=== PATIENT | male | born 1965 | race Caucasian/White ===

== ENCOUNTER 2017-03-07 06:06 | Emergency (ER) | payer OTHER ==
[2017-03-07 06:12] VITALS: BP 156/76
[2017-03-07] MEDS ORDERED: Sucralfate Suspension 1 GM/10 ML Cup PO STA (06:22)
[2017-03-07] MEDS ORDERED: Alum Hydrox/Mag Hydrox/Simeth 30 ML, Lidocaine 2% 15 ML PO STA ×2 (06:22)
--- NOTE | 2017-03-07 06:33 | EDM.PDOC ---
ED HPI GI/ABDOMINAL - General Chief Complaint: ENT Problem Stated Complaint: FB STUCK IN THROAT Time Seen by Provider: 03/07/17 06:11 Source of Information: Reports: Patient, RN notes reviewed History Limitations: Reports: No limitations - History of Present Illness INITIAL COMMENTS - FREE TEXT/NARRATIVE: The patient states he took 3 large pre-workout pills around 05:45 this morning, then developed the sensation of something being stuck in his esophagus. He has been able to swallow water the entire time. He was concerned that he was choking. He states that he has had a similar sensation many times over the past 6 years. The patient is prescribed omeprazole by his PCP in [place] to treat GERD. His last EGD was around 10 years ago. - Related Data Allergies/ADRs: Allergies Allergy/AdvReac Type Severity Reaction Status Date / Time Penicillins Allergy Hives Verified 03/07/17 06:09 sulfamethoxazole Allergy Hives Verified 03/07/17 06:09 [From ] trimethoprim [From ] Allergy Hives Verified 03/07/17 06:09 Home Meds: Home Meds Omeprazole 20 mg PO DAILY 03/07/17 [History] Past Medical History HEENT History: Reports: Other (see below) (BPPV) Respiratory History: Reports: Sleep apnea (CPAP 7) Gastrointestinal History: Reports: GERD Genitourinary History: Reports: Renal calculus Psychiatric History: Reports: Anxiety - Past Surgical History Musculoskeletal Surgical History: Reports: Arthroscopic procedure (Left knee), Shoulder surgery (Right rotator cuff) Social & Family History - Tobacco Use Smoking Status *Q: Never Smoker Second Hand Smoke Exposure: No - Alcohol Use Alcohol Use History: Yes Days Per Week of Alcohol Use: 0 Alcohol Use Frequency: Rarely - Recreational Drug Use Recreational Drug Use: No - Living Situation & Occupation Living situation: Reports: , alone 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) ED ROS GENERAL - Review of Systems Review Of Systems: See Below Constitutional: Reports: no symptoms HEENT: Reports: No symptoms Respiratory: Reports: No Symptoms Cardiovascular: Reports: No symptoms Endocrine: Reports: no symptoms GI/Abdominal: Reports: No symptoms : Reports: no symptoms Musculoskeletal: Reports: no symptoms Skin: Reports: no symptoms Neurological: Reports: No Symptoms Psychiatric: Reports: No symptoms Hematologic/Lymphatic: Reports: no symptoms Immunologic: Reports: no symptoms ED EXAM, GI/ABD - Physical Exam Exam: See Below Exam Limited By: No limitations General Appearance: alert, WD/WN, anxious Eyes: bilateral: normal appearance, EOMI Ears: normal external exam, hearing grossly normal Nose: normal inspection, no blood Throat/Mouth: Normal inspection, Normal lips, Normal voice, No airway compromise Head: atraumatic, normocephalic Neck: normal inspection, full range of motion Respiratory/Chest: no respiratory distress, lungs clear, normal breath sounds, no accessory muscle use Cardiovascular: normal peripheral pulses, regular rate, rhythm, no gallop, no JVD, no murmur, no rub GI/Abdominal: normal bowel sounds, soft, non tender, no organomegaly, no distention, no abnormal bruit, no mass (Male) Exam: Deferred Rectal (Males) Exam: Deferred Back Exam: normal inspection, full range of motion, NT Extremities: normal inspection, normal range of motion, no pedal edema, normal capillary refill Neurological: alert, oriented, normal cognition, normal gait, no motor/sensory deficits Psychiatric: normal affect, anxious Skin Exam: Warm, Dry, Intact, Normal color, No rash Lymphatic: no adenopathy Course - Vital Signs Last Recorded V/S: Last Vital Signs Temp 36.0 C 03/07/17 06:10 Pulse 80 03/07/17 06:10 Resp 16 03/07/17 06:10 BP 156/76 H 03/07/17 06:10 Pulse Ox 100 03/07/17 06:10 - Orders/Labs/Meds Orders: Active Orders 24 hr Category Date Time Status Esophagus [CR] Stat Exams 03/07/17 06:46 Taken Meds: Medications Discontinued Medications Generic Name Dose Route Start Last Admin Trade Name Rickyq PRN Reason Stop Dose Admin Barium Sulfate 355 ml 03/07/17 07:02 Liquid E-Z Paque PO 03/07/17 07:03 PREPRO ONE Al Hydroxide/Mg Hydroxide 30 0 ml 03/07/17 06:22 03/07/17 06:28 ml/ Lidocaine HCl 15 ml PO 03/07/17 06:23 45 ml ONETIME STA Administration Sucralfate 1 gm 03/07/17 06:22 03/07/17 06:28 Carafate PO 03/07/17 06:23 1 gm ONETIME STA Administration - Radiology Interpretation Free Text/Narrative:: 2-view chest radiograph obtained after the patient swallowed some barium appears to indicate barium in the stomach, consistent with no obstruction. Formal read per the Radiologist pending. - Re-Assessments/Exams Free Text/Narrative Re-Assessment/Exam: 03/07/17 06:33 The patient was given water to drink in the ED, and he was able to swallow it without any regurgitation. Clinically, I suspect that the patient has pill esophagitis. I have ordered a GI cocktail to provide quicker relief, to be followed by Carafate to give a longer lasting relief. 03/07/17 06:47 The patient is extremely anxious and will not dring the GI cocktail. He wants a "picture". I have ordered a CXR to be taken after he has swallowed some barium. 03/07/17 07:11 As above, the chest x-ray with barium indicates no obstruction. Clinically, the patient's symptoms had abated after he drank the GI cocktail. I had him drink the Carafate, as well, and, should his symptoms recur, I will have him drink some Gaviscon. Departure - Departure Time of Disposition: 07:12 Disposition: Home, Self-Care 01 Condition: good Clinical Impression: Pill esophagitis Forms: ED Department Discharge Additional Instructions: You were seen in the emergency room after developing the sensation of a pill being stuck in your throat. Workup in the ER included a chest x-ray taken after you swallow some barium. This showed no obstruction in your esophagus. Your symptoms are due to pill esophagitis, which is some inflammation of your esophagus caused by a pill temporarily being stuck to the wall. If your symptoms recur, we recommend that you drink some Gaviscon. In the future, when taking pills, make sure that you swallow them with a large gulp of water. We recommend that you contact your PCP to arrange for an EGD (stomach scope). If any other problems, please do not hesitate to return to the ER. - My Orders Last 24 Hours: My Active Orders 03/07/17 06:46 Esophagus [CR] Stat - Assessment/Plan Last 24 Hours: My Active Orders 03/07/17 06:46 Esophagus [CR] Stat
[2017-03-07] MEDS ORDERED: Barium Sulfate 60% w/v Susp 355 ML Bottle PO ONE (07:02)
--- NOTE | 2017-03-07 10:40 | CR ---
Esophagram: Two views of the chest are obtained after oral contrast has been given. Questionable filling defect within the distal esophagus is seen at the gastroesophageal junction. This appears to be incompletely obstructing as a small amount of barium is seen within the stomach. Other portions of the esophagus as seen on this study appear unremarkable. Heart size and mediastinum are normal. Lungs are clear. Bony structures are unremarkable. Impression: 1. Appearance of a filling defect within the distal esophagus at the gastroesophageal junction. This is nonspecific for ingested foreign body versus tumor or other abnormality. Diagnostic code #3
== END 2017-03-07 07:25 | disposition home or self-care (01) ==
LOC: JD.ED 06:06
DX: K20.9 Esophagitis, unspecified (principal); F41.9 Anxiety disorder, unspecified; K21.9 Gastro-esophageal reflux disease without esophagitis; Z88.0 Allergy status to penicillin; Z88.2 Allergy status to sulfonamides; Z88.1 Allergy status to other antibiotic agents
CPT/HCPCS: 74220; 99284; A9270; 99283

== ENCOUNTER 2017-04-14 19:53 | Emergency (ER) | payer OTHER ==
[2017-04-14] MEDS ORDERED: Sodium Chloride 0.9% 10 ML Syringe FLUSH PRN (20:06)
--- NOTE | 2017-04-14 20:09 | EDM.PDOC ---
ED HPI GENERAL MEDICAL PROBLEM - General Stated Complaint: NUMBNESS ON LEFT SIDE Time Seen by Provider: 04/14/17 19:55 Source of Information: Reports: Patient History Limitations: Reports: No Limitations - History of Present Illness INITIAL COMMENTS - FREE TEXT/NARRATIVE: Patient is a 51-year-old male who presents to the ED complaining of left-sided numbness and tingling. States it started approximately half hour ago while sitting. States with onset he took 810 mg of aspirin prior to arriving to the ED. States he's concerned he may be having a stroke since there is a family history. Denies any headache, nausea/ vomiting, vision changes, chest pain, shortness of breath, abdominal pain, weakness, recent head trauma, or any additional complaints. Patient states he does lift heavy weights daily. States he's taking testosterone supplements that were purchased over the Internet and protein. Denies history of TIA/stroke like symptoms and head bleed. Patient states a few years ago he had a screening carotid ultrasounds indicating mild amount of plaque. Patient was instructed to followup for further testing to which he did not. 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 - Related Data Allergies Allergy/AdvReac Type Severity Reaction Status Date / Time Penicillins Allergy Hives Verified 04/14/17 20:03 sulfamethoxazole Allergy Hives Verified 04/14/17 20:03 [From ] trimethoprim [From ] Allergy Hives Verified 04/14/17 20:03 Home Meds: Home Meds Omeprazole 20 mg PO DAILY 03/07/17 [History] Past Medical History HEENT History: Reports: Other (See Below) Respiratory History: Reports: Sleep Apnea Gastrointestinal History: Reports: GERD Genitourinary History: Reports: Renal Calculus Psychiatric History: Reports: Anxiety - Past Surgical History Musculoskeletal Surgical History: Reports: Arthroscopic Procedure, Shoulder Surgery Social & Family History - Tobacco Use Smoking Status *Q: Never Smoker Second Hand Smoke Exposure: No - Caffeine Use Caffeine Use: Reports: None - Alcohol Use Days Per Week of Alcohol Use: 0 - Recreational Drug Use Recreational Drug Use: No - Living Situation & Occupation Living situation: Reports: , Alone Occupation: Employed ED ROS GENERAL - Review of Systems Review Of Systems: See Below Constitutional: Denies: Fever, Chills HEENT: Denies: Vision Change Respiratory: Denies: Shortness of Breath, Cough Cardiovascular: Denies: Chest Pain, Dyspnea on Exertion, Lightheadedness, Palpitations GI/Abdominal: Denies: Abdominal Pain, Nausea, Vomiting : Denies: Incontinence Musculoskeletal: Denies: Neck Pain, Shoulder Pain, Arm Pain, Back Pain, Leg Pain Neurological: Reports: Dizziness (intermittent), Numbness (left side of body), Tingling (left side of body). Denies: Confusion, Headache, Pre-Existing Deficit , Syncope, Trouble Speaking, Difficulty Walking, Weakness, Change in Speech ED EXAM, NEURO - Physical Exam Exam: See Below Exam Limited By: No Limitations General Appearance: Alert, WD/WN, No Apparent Distress Eye Exam: Bilateral Eye: EOMI, PERRL Ears: Hearing Grossly Normal Nose: Normal Inspection Throat/Mouth: Normal Inspection, Normal Oropharynx, Normal Voice, No Airway Compromise Head Exam: Atraumatic, Normocephalic Neck: Normal Inspection, Supple, Non-Tender. No: Carotid Bruit Respiratory/Chest: No Respiratory Distress, Lungs Clear, Normal Breath Sounds, No Accessory Muscle Use, Chest Non-Tender Cardiovascular: Normal Peripheral Pulses, Regular Rate, Rhythm, No Murmur GI/Abdominal: Normal Bowel Sounds, Soft, Non-Tender, No Organomegaly, No Distention Neurological: Alert, Normal Mood/Affect, Normal Dorsiflexion, CN II-XII Intact, Normal Plantar Flexion, Normal Gait, No Motor/Sensory Deficits (States the left side of his body is having n/t. No sensory deficits noted. ), Oriented x 3, Other (strenght 5/5 upper/lower extremities bilaterally. cerebellar fx's intact. ) Back Exam: Normal Inspection Extremities: Normal Range of Motion Psychiatric: Normal Affect, Normal Mood Skin Exam: Warm, Dry, Intact, Normal Color Course - Vital Signs Last Recorded V/S: Last Vital Signs Temp 98.5 F 04/14/17 19:58 Pulse 64 04/14/17 21:40 Resp 16 04/14/17 21:40 BP 145/88 H 04/14/17 21:40 Pulse Ox 95 04/14/17 21:40 - Orders/Labs/Meds Orders: Active Orders 24 hr Category Date Time Status EKG Documentation Completion [RC] STAT Care 04/14/17 20:06 Active Peripheral IV Care [RC] . DIRECTED Care 04/14/17 20:07 Active Chest 1V Frontal [CR] Stat Exams 04/14/17 20:06 Taken Head wo Cont [CT] Stat Exams 04/14/17 20:06 Taken Peripheral IV Insertion Adult [OM.PC] Stat Oth 04/14/17 20:06 Ordered Labs: Laboratory Tests 04/14/17 04/14/17 04/14/17 Range/Units 20:10 20:10 20:10 WBC 9.27 H (4.23-9.07) K/mm3 RBC 6.45 H (4.63-6.08) M/mm3 Hgb 16.5 (13.7-17.5) gm/L Hct 49.9 (40.1-51.0) % MCV 77.4 L (79.0-92.2) fl MCH 25.6 L (25.7-32.2) pg MCHC 33.1 (32.2-35.5) g/dl RDW Std Deviation 40.1 (35.1-43.9) fL Plt Count 257 (163-337) K/mm3 MPV 9.6 (9.4-12.3) fl Neut % (Auto) 65.7 (34.0-67.9) % Lymph % (Auto) 20.5 L (21.8-53.1) % Hernando % (Auto) 9.4 (5.3-12.2) % Eos % (Auto) 3.5 (0.8-7.0) Baso % (Auto) 0.3 (0.1-1.2) % Neut # (Auto) 6.09 H (1.78-5.38) K/mm3 Lymph # (Auto) 1.90 (1.32-3.57) K/mm3 Hernando # (Auto) 0.87 H (0.30-0.82) K/mm3 Eos # (Auto) 0.32 (0.04-0.54) K/mm3 Baso # (Auto) 0.03 (0.01-0.08) K/mm3 Manual Slide Review Abnormal smear PT 11.1 (8.0-13.0) SECONDS INR 1.02 APTT 26 (22-36) SECONDS Sodium 142 (136-145) mEq/L Potassium 3.8 (3.5-5.1) mEq/L Chloride 104 (98-107) mEq/L Carbon Dioxide 30 (21-32) mEq/L Anion Gap 11.8 (5-15) BUN 24 H (7-18) mg/dL Creatinine 1.7 H (0.7-1.3) mg/dL Est Cr Clr Drug Dosing TNP Estimated GFR (MDRD) 43 (>60) mL/min BUN/Creatinine Ratio 14.1 (14-18) Glucose 91 (74-106) mg/dL Calcium 9.6 (8.5-10.1) mg/dL Total Bilirubin 0.3 (0.2-1.0) mg/dL AST 31 (15-37) U/L ALT 29 (16-63) U/L Alkaline Phosphatase 67 (46-116) U/L Troponin I < 0.017 (0.00-0.056) ng/mL Total Protein 7.5 (6.4-8.2) g/dl Albumin 4.1 (3.4-5.0) g/dl Globulin 3.4 gm/dL Albumin/Globulin Ratio 1.2 (1-2) TSH 3rd Generation 1.552 (0.358-3.74) uIU/mL Urine Opiates Screen (NEGATIVE) Ur Buprenorphine Scrn (NEGATIVE) Ur Oxycodone Screen (NEGATIVE) Urine Methadone Screen (NEGATIVE) Ur Propoxyphene Screen (NEGATIVE) Ur Barbiturates Screen (NEGATIVE) Ur Tricyclics Screen (NEGATIVE) Ur Phencyclidine Scrn (NEGATIVE) Ur Amphetamine Screen (NEGATIVE) U Methamphetamines Scrn (NEGATIVE) U Benzodiazepines Scrn (NEGATIVE) U Cocaine Metab Screen (NEGATIVE) U Marijuana (THC) Screen (NEGATIVE) 04/14/17 Range/Units 22:45 WBC (4.23-9.07) K/mm3 RBC (4.63-6.08) M/mm3 Hgb (13.7-17.5) gm/L Hct (40.1-51.0) % MCV (79.0-92.2) fl MCH (25.7-32.2) pg MCHC (32.2-35.5) g/dl RDW Std Deviation (35.1-43.9) fL Plt Count (163-337) K/mm3 MPV (9.4-12.3) fl Neut % (Auto) (34.0-67.9) % Lymph % (Auto) (21.8-53.1) % Hernando % (Auto) (5.3-12.2) % Eos % (Auto) (0.8-7.0) Baso % (Auto) (0.1-1.2) % Neut # (Auto) (1.78-5.38) K/mm3 Lymph # (Auto) (1.32-3.57) K/mm3 Hernando # (Auto) (0.30-0.82) K/mm3 Eos # (Auto) (0.04-0.54) K/mm3 Baso # (Auto) (0.01-0.08) K/mm3 Manual Slide Review PT (8.0-13.0) SECONDS INR APTT (22-36) SECONDS Sodium (136-145) mEq/L Potassium (3.5-5.1) mEq/L Chloride (98-107) mEq/L Carbon Dioxide (21-32) mEq/L Anion Gap (5-15) BUN (7-18) mg/dL Creatinine (0.7-1.3) mg/dL Est Cr Clr Drug Dosing Estimated GFR (MDRD) (>60) mL/min BUN/Creatinine Ratio (14-18) Glucose (74-106) mg/dL Calcium (8.5-10.1) mg/dL Total Bilirubin (0.2-1.0) mg/dL AST (15-37) U/L ALT (16-63) U/L Alkaline Phosphatase (46-116) U/L Troponin I (0.00-0.056) ng/mL Total Protein (6.4-8.2) g/dl Albumin (3.4-5.0) g/dl Globulin gm/dL Albumin/Globulin Ratio (1-2) TSH 3rd Generation (0.358-3.74) uIU/mL Urine Opiates Screen Negative (NEGATIVE) Ur Buprenorphine Scrn Negative (NEGATIVE) Ur Oxycodone Screen Negative (NEGATIVE) Urine Methadone Screen Negative (NEGATIVE) Ur Propoxyphene Screen Negative (NEGATIVE) Ur Barbiturates Screen Negative (NEGATIVE) Ur Tricyclics Screen Negative (NEGATIVE) Ur Phencyclidine Scrn Negative (NEGATIVE) Ur Amphetamine Screen Negative (NEGATIVE) U Methamphetamines Scrn Negative (NEGATIVE) U Benzodiazepines Scrn Negative (NEGATIVE) U Cocaine Metab Screen Negative (NEGATIVE) U Marijuana (THC) Screen Negative (NEGATIVE) Meds: Medications Discontinued Medications Generic Name Dose Route Start Last Admin Trade Name Freq PRN Reason Stop Dose Admin Sodium Chloride 1,000 mls @ 999 mls/hr 04/14/17 21:19 04/14/17 21:35 Normal Saline IV 04/14/17 22:19 999 mls/hr ONETIME ONE Administration Sodium Chloride 1,000 mls @ 75 mls/hr 04/14/17 22:45 04/14/17 22:47 Normal Saline IV 75 mls/hr ASDIRECTED REYNA Administration Ondansetron HCl 4 mg 04/14/17 22:47 04/14/17 22:50 Zofran IVPUSH 04/14/17 22:48 4 mg ONETIME ONE Administration Sodium Chloride 10 ml 04/14/17 20:06 04/14/17 20:11 Saline Flush FLUSH 10 ml ASDIRECTED PRN Administration Keep Vein Open - Re-Assessments/Exams Free Text/Narrative Re-Assessment/Exam: The patient is a 51-year-old man who presents to the ED complaining of numbness and tingling to the left side of his body. States it started about a half hour ago while sitting. Patient took 810 mg of aspirin prior to arrival to the ED. Symptoms have not worsened since onset. Neurological exam was negative for any pertinent findings. Peripheral IV has been ordered. Initial lab studies include chem 14, CBC, troponin, PT/INR, PTT, urine drug tox, TSH, chest x-ray one view, CT of the head without contrast ,and EKG. EKG sinus rhythm rate of 68, SC 176, QTc 394, no acute ST changes. CXR: No acute findings. CT of the head wo contrast impression: NO acute findings. Labs reviewed: White blood cell count 9.27, hemoglobin 16.5, sodium 142 Potassium 4.8, crit 1.7, troponin less than 0.017, TSH 1.5. Cr elevation mostly likely associated with supplement usage. Ordered NS 1000mls bolus. 04/14/17 21:21 Reassessment, symptoms remain constant with no change. With further questioning patient does admit to having similar symptoms multiple times over the course of the past few years. States he's had a stress test, echocardiogram, and carotid ultrasound with no significant findings. Stress test obtained here April 14, 2016 for dizziness.this was a Cardiolite cardiac exam impression: No abnormality is identified in Cardiolite portion of cardiac stress test. Patient underwent Matthew protocol treadmill stress EKG with positive EKG findings. Multiple ST depressions with a significant drop in blood pressure. Strongly recommend a cardiology evaluation for this patient. 2151 Patient is requesting going to [place] for further workup of recent symptoms. [facility] is his choice. [place] [facility] call was notified. They will call back when they neurologist available. He is two additional stroke codes taking place at this time. 04/14/17 22:[address] [facility]. Suggested obtaining CTA brain/neck or MRI. Patient creatine is elevated. MRI is not available this evening. Suggested transferring patient to [facility] for further evaluation. He has accepted the patient. Patient was unsure if he would want to go by fixed wing or POV will get back to him when have a answer. 2210 Patient will discuss going by POV or fixed wing and get back to me in 5 minutes. Symptoms have not changed. 04/14/17 22:15 Patient has agreed to be transported via fix wing to [facility]. Urine drug tox has not been obtained. Patient complaining of nausea. Ordered zofran 4mg IVP. Departure - Departure Time of Disposition: 22:41 Disposition: DC/Tfer to Acute Hospital 02 Clinical Impression: Numbness on left side - Discharge Information Referrals: PCP,Not In Area [Primary Care Provider] - Forms: ED Department Discharge - My Orders Last 24 Hours: My Active Orders 04/14/17 20:06 EKG Documentation Completion [RC] STAT Chest 1V Frontal [CR] Stat Head wo Cont [CT] Stat Peripheral IV Insertion Adult [OM.PC] Stat 04/14/17 20:07 Peripheral IV Care [RC] . DIRECTED - Assessment/Plan Last 24 Hours: My Active Orders 04/14/17 20:06 EKG Documentation Completion [RC] STAT Chest 1V Frontal [CR] Stat Head wo Cont [CT] Stat Peripheral IV Insertion Adult [OM.PC] Stat 04/14/17 20:07 Peripheral IV Care [RC] . DIRECTED
[2017-04-14] MEDS ORDERED: Sodium Chloride 0.9% 1,000 ML IV ONE (21:19)
[2017-04-14 21:42] VITALS: BP 145/88
[2017-04-14] MEDS ORDERED: Sodium Chloride 0.9% 1,000 ML IV SCH (22:45)
[2017-04-14] MEDS ORDERED: Ondansetron 4 MG/2 ML SDV IVPUSH ONE (22:47)
--- NOTE | 2017-04-16 07:37 | CR ---
Chest: Portable view of the chest was obtained. Comparison: Previous chest x-ray of 03/07/17. Heart size and mediastinum are normal. Lungs are clear. Bony structures are grossly intact. Impression: 1. Nothing acute is identified on portable chest x-ray. Diagnostic code #1
--- NOTE | 2017-04-16 07:37 | CT ---
Head CT Technique: Multiple axial sections through the brain were obtained. Intravenous contrast was not utilized. Comparison: No previous intracranial imaging. Findings: Ventricles along with basal cisterns and sulci over the convexities are within normal limits for the patient's age. No abnormal parenchymal densities are seen. No evidence of intracranial hemorrhage. No midline shift or mass effect is seen. Bone window settings were reviewed which show no acute calvarial abnormality. Visualized mastoid sinuses are clear. Paranasal sinuses appear to be clear. Impression: 1. Nothing acute is identified on noncontrast head CT exam. Diagnostic code #1 I agree with preliminary report issued by [facility] ([facility] report finalized on 04/14/17, 10:01 PM Central Time)
== END 2017-04-14 23:07 ==
LOC: JD.ED 19:53
DX: R20.0 Anesthesia of skin (principal); R20.2 Paresthesia of skin; K21.9 Gastro-esophageal reflux disease without esophagitis; F41.9 Anxiety disorder, unspecified; Z88.0 Allergy status to penicillin; Z88.2 Allergy status to sulfonamides
CPT/HCPCS: 36415; 70450; 71010; 80053; 80306; 84443; 84484; 85025; 85610; 85730; 93005; 96361; 96374; 99285; J2405; J7040; J7050; 99284

== ENCOUNTER 2017-11-18 21:17 | Emergency (ER) | payer OTHER ==
[2017-11-18 21:26] VITALS: BP 173/11
[2017-11-18] MEDS ORDERED: Sodium Chloride 0.9% 10 ML Syringe FLUSH PRN (21:28)
[2017-11-18] MEDS ORDERED: Alum Hydrox/Mag Hydrox/Simeth 30 ML, Lidocaine 2% 15 ML PO ONE ×2 (21:29)
[2017-11-18] MEDS ORDERED: Famotidine 20 MG/2 ML SDV IVPUSH ONE (21:29)
--- NOTE | 2017-11-18 21:49 | EDM.PDOC ---
ED HPI GENERAL MEDICAL PROBLEM - General Chief Complaint: Chest Pain Stated Complaint: CHEST PAIN SOB Time Seen by Provider: 11/18/17 21:24 Source of Information: Reports: Patient History Limitations: Reports: No Limitations - History of Present Illness INITIAL COMMENTS - FREE TEXT/NARRATIVE: The patient presents with burning chest pain. This started about 1/2 hour before arrival. He had burped something up and felt burning pain and shortness of breath with it. He also has pain radiating up into his throat with some shortness of breath. He has no fever, chills, cough, abdominal pain, nausea or vomiting. He does have a history of reflux but not this bad. He takes an acid table runner. He has no history of CAD. He has had a few EKGs before. He drank some coke and took some tums with minimal relief. Onset: Sudden Duration: Hour(s): (1/2 hour before arrival) Location: Reports: Chest Quality: Reports: Burning Severity: Moderate Improves with: Reports: None Worsens with: Reports: None Associated Symptoms: Reports: Chest Pain, Shortness of Breath. Denies: Cough, Fever/Chills, Headaches, Nausea/Vomiting Middle Chest Pain Score (Numeric/FACES): 7 - Related Data Allergies Allergy/AdvReac Type Severity Reaction Status Date / Time Penicillins Allergy Hives Verified 11/18/17 21:22 sulfamethoxazole Allergy Hives Verified 11/18/17 21:22 [From ] trimethoprim [From ] Allergy Hives Verified 11/18/17 21:22 Home Meds: Home Meds Omeprazole 40 mg PO DAILY 03/07/17 [History] Past Medical History HEENT History: Reports: Other (See Below) Respiratory History: Reports: Sleep Apnea Gastrointestinal History: Reports: GERD Genitourinary History: Reports: Renal Calculus Psychiatric History: Reports: Anxiety - Past Surgical History Musculoskeletal Surgical History: Reports: Arthroscopic Procedure, Shoulder Surgery Social & Family History - Tobacco Use Smoking Status *Q: Never Smoker Second Hand Smoke Exposure: No - Caffeine Use Caffeine Use: Reports: None - Alcohol Use Days Per Week of Alcohol Use: 0 - Recreational Drug Use Recreational Drug Use: No - Living Situation & Occupation Living situation: Reports: , Alone Occupation: Employed ED ROS GENERAL - Review of Systems Review Of Systems: See Below Constitutional: Reports: No Symptoms HEENT: Reports: No Symptoms Respiratory: Reports: Shortness of Breath Cardiovascular: Reports: Chest Pain Endocrine: Reports: No Symptoms GI/Abdominal: Reports: No Symptoms : Reports: No Symptoms Musculoskeletal: Reports: No Symptoms ED EXAM, GENERAL - Physical Exam Exam: See Below Exam Limited By: No Limitations General Appearance: Alert, No Apparent Distress Ears: Normal External Exam Nose: Normal Inspection Throat/Mouth: Other (Mild erythema of the oropharynx) Head: Atraumatic, Normocephalic Neck: Normal Inspection Respiratory/Chest: No Respiratory Distress, Lungs Clear, Normal Breath Sounds Cardiovascular: Regular Rate, Rhythm, No Edema, No Murmur GI/Abdominal: Soft, Non-Tender, No Organomegaly, No Mass Back Exam: Normal Inspection Extremities: Normal Inspection EKG INTERPRETATION EKG Date: 11/18/17 Time: 21:32 Rhythm: NSR Rate (Beats/Min): 78 [place]: Normal P-Wave: Present QRS: Normal ST-T: Normal QT: Normal Course - Vital Signs Last Recorded V/S: Last Vital Signs Temp 96.9 F 11/18/17 21:23 Pulse 82 11/18/17 21:23 Resp 15 11/18/17 21:23 BP 173/11 H 11/18/17 21:23 Pulse Ox 1 L 11/18/17 21:23 - Orders/Labs/Meds Orders: Active Orders 24 hr Category Date Time Status Cardiac Monitoring [RC] . DIRECTED Care 11/18/17 21:28 Active EKG Documentation Completion [RC] STAT Care 11/18/17 21:29 Active Peripheral IV Care [RC] . DIRECTED Care 11/18/17 21:29 Active Chest 1V Frontal [CR] Stat Exams 11/18/17 21:29 Taken Sodium Chloride 0.9% [Saline Flush] Med 11/18/17 21:28 Active 10 ml FLUSH ASDIRECTED PRN Peripheral IV Insertion Adult [OM.PC] Stat Oth 11/18/17 21:28 Ordered Medication Orders Sodium Chloride (Saline Flush) 10 ml FLUSH ASDIRECTED PRN PRN Reason: Keep Vein Open Last Admin: 11/18/17 21:43 Dose: 10 ml Labs: Laboratory Tests 11/18/17 11/18/17 Range/Units 21:37 21:37 WBC 8.09 (4.23-9.07) K/mm3 RBC 6.11 H (4.63-6.08) M/mm3 Hgb 15.9 (13.7-17.5) gm/L Hct 46.0 (40.1-51.0) % MCV 75.3 L (79.0-92.2) fl MCH 26.0 (25.7-32.2) pg MCHC 34.6 (32.2-35.5) g/dl RDW Std Deviation 37.1 (35.1-43.9) fL Plt Count 267 (163-337) K/mm3 MPV 9.6 (9.4-12.3) fl Neut % (Auto) 58.3 (34.0-67.9) % Lymph % (Auto) 26.9 (21.8-53.1) % [place] % (Auto) 12.1 (5.3-12.2) % Eos % (Auto) 2.1 (0.8-7.0) Baso % (Auto) 0.2 (0.1-1.2) % Neut # (Auto) 4.71 (1.78-5.38) K/mm3 Lymph # (Auto) 2.18 (1.32-3.57) K/mm3 [place] # (Auto) 0.98 H (0.30-0.82) K/mm3 Eos # (Auto) 0.17 (0.04-0.54) K/mm3 Baso # (Auto) 0.02 (0.01-0.08) K/mm3 Manual Slide Review Abnormal smear Sodium 144 (136-145) mEq/L Potassium 3.7 (3.5-5.1) mEq/L Chloride 104 (98-107) mEq/L Carbon Dioxide 30 (21-32) mEq/L Anion Gap 13.7 (5-15) BUN 19 H (7-18) mg/dL Creatinine 1.5 H (0.7-1.3) mg/dL Est Cr Clr Drug Dosing 60.16 mL/min Estimated GFR (MDRD) 49 (>60) mL/min BUN/Creatinine Ratio 12.7 L (14-18) Glucose 100 (74-106) mg/dL Calcium 9.3 (8.5-10.1) mg/dL Total Bilirubin 0.3 (0.2-1.0) mg/dL AST 26 (15-37) U/L ALT 33 (16-63) U/L Alkaline Phosphatase 83 (46-116) U/L Troponin I < 0.017 (0.00-0.056) ng/mL Total Protein 7.4 (6.4-8.2) g/dl Albumin 4.2 (3.4-5.0) g/dl Globulin 3.2 gm/dL Albumin/Globulin Ratio 1.3 (1-2) Lipase 338 (73-393) U/L Meds: Medications Generic Name Dose Route Start Last Admin Trade Name Freq PRN Reason Stop Dose Admin Sodium Chloride 10 ml 11/18/17 21:28 11/18/17 21:43 Saline Flush FLUSH 10 ml ASDIRECTED PRN Administration Keep Vein Open Discontinued Medications Generic Name Dose Route Start Last Admin Trade Name Freq PRN Reason Stop Dose Admin Al Hydroxide/Mg Hydroxide 30 0 ml 11/18/17 21:29 11/18/17 21:43 ml/ Lidocaine HCl 15 ml PO 11/18/17 21:30 45 ml ONETIME ONE Administration Famotidine 20 mg 11/18/17 21:29 11/18/17 21:43 Pepcid IVPUSH 11/18/17 21:30 20 mg ONETIME ONE Administration - Re-Assessments/Exams Free Text/Narrative Re-Assessment/Exam: 11/18/17 21:50 I ordered an IV saline lock, EKG, CXR, labs, pepcid 20mg IV, and a GI cocktail. 11/18/17 22:50 His EKG shows a NSR with no acute changes. His CXR looks good. His CBC looks good. His creatinine was elevated at 1.5. His troponin was negative. He feels better. I will discharge him home. Departure - Departure Time of Disposition: 22:55 Disposition: Home, Self-Care 01 Condition: Good Clinical Impression: Atypical chest pain GERD (gastroesophageal reflux disease) Qualifiers: Esophagitis presence: with esophagitis Qualified Code(s): K21.0 - Gastro- esophageal reflux disease with esophagitis Referrals: PCP,None [Primary Care Provider] - Forms: ED Department Discharge Additional Instructions: Take your medication as prescribed. Avoid eating late at night. Stay upright for at lest an hour after eating. Avoid alcohol. Please return if you are worse. Follow up with your doctor. - My Orders Last 24 Hours: My Active Orders 11/18/17 21:28 Cardiac Monitoring [RC] . DIRECTED Sodium Chloride 0.9% [Saline Flush] 10 ml FLUSH ASDIRECTED PRN Peripheral IV Insertion Adult [OM.PC] Stat 11/18/17 21:29 EKG Documentation Completion [RC] STAT Peripheral IV Care [RC] . DIRECTED Chest 1V Frontal [CR] Stat - Assessment/Plan Last 24 Hours: My Active Orders 11/18/17 21:28 Cardiac Monitoring [RC] . DIRECTED Sodium Chloride 0.9% [Saline Flush] 10 ml FLUSH ASDIRECTED PRN Peripheral IV Insertion Adult [OM.PC] Stat 11/18/17 21:29 EKG Documentation Completion [RC] STAT Peripheral IV Care [RC] . DIRECTED Chest 1V Frontal [CR] Stat
--- NOTE | 2017-11-20 07:59 | CR ---
Chest: Portable view of the chest was obtained. Comparison: Prior chest x-ray of 04/14/17. Heart size and mediastinum are normal. Lungs are clear. Bony structures appear within normal limits for the patient's age. Impression: 1. Nothing acute is identified on portable chest x-ray. Diagnostic code #1
== END 2017-11-18 23:00 | disposition home or self-care (01) ==
LOC: JD.ED 21:17
DX: K21.0 Gastro-esophageal reflux disease with esophagitis (principal); Z88.0 Allergy status to penicillin; Z88.2 Allergy status to sulfonamides; Z88.1 Allergy status to other antibiotic agents; Z79.899 Other long term (current) drug therapy
CPT/HCPCS: 36415; 71010; 80053; 83690; 84484; 85025; 93005; 96374; 99285; A9270; J7050; 93010; 99284-25

== ENCOUNTER 2018-01-21 09:32 | Emergency (ER) | payer OTHER ==
[2018-01-21 09:41] VITALS: BP 145/89
--- NOTE | 2018-01-21 10:33 | EDM.PDOC ---
ED HPI GENERAL MEDICAL PROBLEM - General Chief Complaint: ENT Problem Stated Complaint: SORE THROAT Time Seen by Provider: 01/21/18 09:49 Source of Information: Reports: Patient History Limitations: Reports: No Limitations - History of Present Illness INITIAL COMMENTS - FREE TEXT/NARRATIVE: The patient presents with a cough and congestion for the past 1.5 weeks. He feels like his esophagus is closing up. He has severe acid reflux and he has been dilated 3 times. He is scheduled to get a EGD in [address] Earl. He has no fever or chills. He dose have a slightly productive cough. He has no congestion. He has no abdominal pain, nausea or vomiting. He has no trouble swallowing. Onset: Gradual Duration: Day(s): Improves with: Reports: None Worsens with: Reports: None Associated Symptoms: Reports: Cough, cough w sputum. Denies: Fever/Chills, Headaches, Nausea/Vomiting, Shortness of Breath esophogus/throat area Pain Score (Numeric/FACES): 4 - Related Data Allergies Allergy/AdvReac Type Severity Reaction Status Date / Time Penicillins Allergy Hives Verified 01/21/18 09:41 sulfamethoxazole Allergy Hives Verified 01/21/18 09:41 [From ] trimethoprim [From ] Allergy Hives Verified 01/21/18 09:41 Home Meds: Home Meds Omeprazole 40 mg PO DAILY 03/07/17 [History] Past Medical History HEENT History: Reports: Other (See Below) Other HEENT History: esophogeal dilation x3 Respiratory History: Reports: Sleep Apnea Gastrointestinal History: Reports: GERD Genitourinary History: Reports: Renal Calculus Psychiatric History: Reports: Anxiety - Past Surgical History GI Surgical History: Reports: Esophageal Dilatation Musculoskeletal Surgical History: Reports: Arthroscopic Procedure, Shoulder Surgery Social & Family History - Family History Family Medical History: Noncontributory - Tobacco Use Smoking Status *Q: Never Smoker Second Hand Smoke Exposure: No - Caffeine Use Caffeine Use: Reports: Soda - Alcohol Use Days Per Week of Alcohol Use: 0 - Recreational Drug Use Recreational Drug Use: No - Living Situation & Occupation Living situation: Reports: , Alone Occupation: Employed ED ROS ENT - Review of Systems Review Of Systems: See Below Constitutional: Reports: No Symptoms HEENT: Reports: No Symptoms Respiratory: Reports: No Symptoms Cardiovascular: Reports: No Symptoms Endocrine: Reports: No Symptoms GI/Abdominal: Reports: Other (He feels like his esophagus is swelling). Denies : Abdominal Pain, Diarrhea, Nausea, Vomiting ED EXAM, ENT - Physical Exam Exam: See Below Exam Limited By: No Limitations General Appearance: Alert, No Apparent Distress Ears: Normal External Exam Nose: Normal Inspection Mouth/Throat: Normal Inspection Head: Atraumatic, Normocephalic Neck: Normal Inspection Respiratory/Chest: No Respiratory Distress, Lungs Clear, Normal Breath Sounds Cardiovascular: Regular Rate, Rhythm, No Edema, No Murmur GI/Abdominal: Soft, Non-Tender, No Organomegaly, No Mass Back: Normal Inspection Extremities: Normal Inspection Neurological: Alert, Oriented, No Motor/Sensory Deficits Course - Vital Signs Last Recorded V/S: Last Vital Signs Temp 97.1 F 01/21/18 09:34 Pulse 81 01/21/18 09:34 Resp 18 01/21/18 09:34 BP 145/89 H 01/21/18 09:34 Pulse Ox 96 01/21/18 09:34 - Orders/Labs/Meds Orders: Active Orders 24 hr Category Date Time Status CXR [Chest 2V] [CR] Stat Exams 01/21/18 09:57 Taken - Re-Assessments/Exams Free Text/Narrative Re-Assessment/Exam: 01/21/18 10:34 His CXR looks good. He has a viral URI that may cause some edema at night. I will have him take some benadryl or zantac. Departure - Departure Time of Disposition: 10:35 Disposition: Home, Self-Care 01 Condition: Good Clinical Impression: Viral upper respiratory illness - Discharge Information Referrals: Donna Trent PA-C [Primary Care Provider] - 1 Week Additional Instructions: Take benadryl and pepcid for any swelling. Please return if you are worse. Keep your appointment in 2 days. - My Orders Last 24 Hours: My Active Orders 01/21/18 09:57 CXR [Chest 2V] [CR] Stat - Assessment/Plan Last 24 Hours: My Active Orders 01/21/18 09:57 CXR [Chest 2V] [CR] Stat
--- NOTE | 2018-01-21 10:44 | CR ---
Chest: Two views of the chest were obtained. Comparison: Prior chest x-ray of 11/18/17. Heart size and mediastinum are normal. Lungs are clear. Bony structures are unremarkable. Lungs are somewhat hyperinflated raising the possibility of emphysematous change. Impression: 1. Possible emphysematous change. Please correlate if patient is a smoker. 2. Nothing acute is otherwise seen on two-view chest x-ray. Diagnostic code #2
== END 2018-01-21 10:46 | disposition home or self-care (01) ==
LOC: JD.ED 09:32
DX: J06.9 Acute upper respiratory infection, unspecified (principal); K21.9 Gastro-esophageal reflux disease without esophagitis; Z98.890 Other specified postprocedural states; Z79.899 Other long term (current) drug therapy; Z88.0 Allergy status to penicillin; Z88.1 Allergy status to other antibiotic agents; Z88.2 Allergy status to sulfonamides
CPT/HCPCS: 71046; 71046-26; 99283

== ENCOUNTER 2018-01-22 23:42 | Emergency (ER) | payer OTHER ==
[2018-01-22 23:58] VITALS: BP 151/86
[2018-01-23] MEDS: Alum Hydrox/Mag Hydrox/Simeth 30 ML, Lidocaine 2% 15 ML PO STA ×2 (01:28)
== END 2018-01-23 01:23 | disposition left against medical advice (07) ==
LOC: JD.ED 23:42
DX: Z53.21 Procedure and treatment not carried out due to patient leaving prior to being seen by health care provider (principal)
CPT/HCPCS: 99283-25

== ENCOUNTER 2018-02-27 06:50 | Day surgery (SDC) | payer OTHER ==
[~2018-02-27 06:50] MED LIST: Lactated Ringers 1,000 ML IV SCH; Lidocaine 1%/Sod Bicarbonate in NS 8.4% 1 ML Syringe IDERM PRN; Sodium Chloride 0.9% 10 ML Syringe FLUSH PRN
--- NOTE | 2018-02-27 07:20 | PCM.PREANE ---
Preanesthetic Assessment - Anesthesia/Transfusion/Family Hx Anesthesia History: Prior Anesthesia Without Reaction Family History of Anesthesia Reaction: No Transfusion History: No Prior Transfusion(s) - Review of Systems General: No Symptoms Pulmonary: No Symptoms Cardiovascular: No Symptoms Gastrointestinal: No Symptoms Neurological: No Symptoms Other: Reports: None - Physical Assessment NPO Status Date: 02/26/18 NPO Status Time: 19:00 Pulse: 59 O2 Sat by Pulse Oximetry: 99 Respiratory Rate: 16 Blood Pressure: 139/80 Temperature: 36.4 C Height: 1.78 m Weight: 78.018 kg ASA Class: 2 Mental Status: Alert & Oriented x3 Airway Class: Mallampati = 1 Dentition: Reports: [place](s) Thyro-Mental Finger Breadths: 3 Mouth Opening Finger Breadths: 3 ROM/Head Extension: Full Lungs: Clear to Auscultation, Normal Respiratory Effort Cardiovascular: Regular Rate, Regular Rhythm, No Murmurs - Imaging/EKG Impressions: SR EKG on chart - Allergies Allergies/Adverse Reactions: Allergies Allergy/AdvReac Type Severity Reaction Status Date / Time Penicillins Allergy Hives Verified 02/26/18 15:27 sulfamethoxazole Allergy Hives Verified 02/26/18 15:27 [From Julra] trimethoprim [From Julra] Allergy Hives Verified 02/26/18 15:27 - Blood Blood Available: No Product(s) Available: None - Anesthesia Plan Pre-Op Medication Ordered: None - Acknowledgements Anesthesia Type Planned: MAC Pt an Appropriate Candidate for the Planned Anesthesia: Yes Alternatives and Risks of Anesthesia Discussed w Pt/Guardian: Yes Pt/Guardian Understands and Agrees with Anesthesia Plan: Yes PreAnesthesia Questionnaire HEENT History: Reports: Other (See Below) Other HEENT History: esophogeal dilation x3 Cardiovascular History: Reports: None Respiratory History: Reports: Sleep Apnea Gastrointestinal History: Reports: GERD Genitourinary History: Reports: None, Renal Calculus 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 Neurological History: Reports: None Psychiatric History: Reports: None, Anxiety Endocrine/Metabolic History: Reports: None Hematologic History: Reports: None Immunologic History: Reports: None Oncologic (Cancer) History: Reports: None Dermatologic History: Reports: None - Past Surgical History Head Surgeries/Procedures: Reports: None Cardiovascular Surgical History: Reports: None Respiratory Surgical History: Reports: None GI Surgical History: Reports: Esophageal Dilatation Female Surgical History: Reports: None Male Surgical History: Reports: None Endocrine Surgical History: Reports: None Neurological Surgical History: Reports: None Musculoskeletal Surgical History: Reports: Arthroscopic Procedure, Shoulder Surgery Oncologic Surgical History: Reports: None Dermatological Surgical History: Reports: None - SUBSTANCE USE Smoking Status *Q: Never Smoker Tobacco Use Within Last Twelve Months: No Second Hand Smoke Exposure: No Days Per Week of Alcohol Use: 0 Number of Drinks Per Day: 0 Total Drinks Per Week: 0 Recreational Drug Use History: No - HOME MEDS Home Medications: Home Meds Pure Digest Enzyme 1 - 2 tab PO DAILY 02/26/18 [History] Ranitidine HCl [Zantac 75] 75 mg PO DAILY 02/26/18 [History] - CURRENT (IN HOUSE) MEDS Current Meds: Current Medications Discontinued Medications Lactated Ringer's (Ringers, Lactated) 1,000 mls @ 125 mls/hr IV ASDIRECTED REYNA Stop: 01/23/18 23:00 Lactated Ringer's (Ringers, Lactated) 1,000 mls @ 125 mls/hr IV ASDIRECTED [facility] Lidocaine/Sodium Bicarbonate (Buffered Lidocaine 1% In Ns 8.4%) 0.25 ml IDERM ONETIME PRN PRN Reason: Prior to IV Start Stop: 01/23/18 18:00 Lidocaine/Sodium Bicarbonate (Buffered Lidocaine 1% In Ns 8.4%) 0.25 ml IDERM ONETIME PRN PRN Reason: Prior to IV Start Sodium Chloride (Saline Flush) 10 ml FLUSH ASDIRECTED PRN PRN Reason: Keep Vein Open Stop: 01/23/18 18:00 Sodium Chloride (Saline Flush) 10 ml FLUSH ASDIRECTED PRN PRN Reason: Keep Vein Open
[2018-02-27] MEDS ORDERED: LIDOCAINE SUBCUT SCH (07:38)
[2018-02-27] MEDS ORDERED: SODIUM BICARBONATE SUBCUT SCH (07:38)
[2018-02-27] MEDS ORDERED: Lactated Ringers 1,000 ML IV SCH (07:38)
[2018-02-27] MEDS ORDERED: Propofol 200 MG/20 ML SDV ONE (07:44)
[2018-02-27] MEDS ORDERED: Midazolam 1 MG/ML 2 ML SDV ONE (07:44)
[2018-02-27] MEDS ORDERED: Lidocaine 1% 4 ML ONE (07:58)
--- NOTE | 2018-02-27 08:20 | PCM.OPNOTE ---
- General Post-Op/Procedure Note Date of Surgery/Procedure: 02/27/18 Operative Procedure(s): Esophagogastroduodenoscopy with GE junction and ring biopsy along with proximal esophageal biopsy Findings: 1. Early Schatzki's ring 2. Endoscopic distal esophagitis at the GE junction, without Pierce's change 3. Type I sliding hiatal hernia Pre Op Diagnosis: History of GERD and dysphagia Post-Op Diagnosis: 1. Schatzki's ring. 2. Esophagitis Anesthesia Technique: MAC, Moderate Sedation Primary Surgeon: Shawn Earl Pathology: Ring GE junction and proximal esophageal biopsies EBL in mLs: 0 Complications: None Condition: Good Free Text/Narrative:: After adequate IV sedation and analgesia was obtained with monitoring the patient was placed on his left side. Through a bite-block lubricated upper endoscope was inserted into the esophagus and then advanced under direct vision to the stomach where additional air was given. There were no ade ulcers or erosions. The scope was then introduced into the duodenum to its second part distally. The second and first parts were endoscopically normal with no mass lesions or inflammatory changes seen. In the retroflexed view the cardiac and fundic regions were unremarkable but there was a small sliding hiatal hernia type I. The rugal folds were normal. The gastric motility was grossly normal as well. The scope was then withdrawn to the GE junction where there was a non occlusive Schatzki ring just above the GE junction that was seen on entry into the stomach. The mucosa at the GE junction was slightly friable but there were no ulcers or endoscopic features consistent with Pierce's change. I took 2 biopsies of this area and the ring. I also biopsied the proximal esophagus at 15 cm. The body of this esophagus was grossly normal. 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 Air was removed as I finished the procedure which he tolerated well.
[2018-02-27 08:23] VITALS: BP 111/68
== END 2018-02-27 08:52 | disposition home or self-care (01) ==
LOC: JD.SDS 06:50
PROVIDERS: ATTEND Surgery
DX: K21.0 Gastro-esophageal reflux disease with esophagitis (principal); K44.9 Diaphragmatic hernia without obstruction or gangrene; K22.2 Esophageal obstruction; F41.1 Generalized anxiety disorder; G47.30 Sleep apnea, unspecified; Z88.0 Allergy status to penicillin; Z88.1 Allergy status to other antibiotic agents; Z88.2 Allergy status to sulfonamides; J30.81 Allergic rhinitis due to animal (cat) (dog) hair and dander; Z79.899 Other long term (current) drug therapy
CPT/HCPCS: 43239; J2250; J7120; 00731; J2001; J2704